=== PATIENT | female | born 1995 | race Caucasian/White ===

== ENCOUNTER 2019-08-11 12:06 | Outpatient (CLI) | payer OTHER, SELFPAY ==
[2019-08-11 13:53] LABS: Hepatitis B Surface Antigen Negative (Negative)
[2019-08-11 14:11] LABS: Hepatitis C Virus Antibody Negative (Negative)
[2019-08-12 07:32] LABS: Rapid Plasma Reagin Non-Reactive (NonReactive)
[2019-08-14 14:11] LABS: HSV 1 IgM Screen Positive (Negative); HSV 2 IgM Screen Negative (Negative)
[2019-08-14 14:42] LABS: HSV 1 IgM Titer 1:20 (<1:20)
== END 2019-08-11 12:07 | disposition home or self-care (01) ==
PROVIDERS: PCP Internal Medicine; Visit Provider Obstetrics & Gynecology
DX: N90.89 Other specified noninflammatory disorders of vulva and perineum (principal); Z11.59 Encounter for screening for other viral diseases
CPT/HCPCS: 36415; 86592; 86695; 86696; 86803; 87340

== ENCOUNTER 2023-06-20 13:04 | Outpatient (CLI) | payer OTHER, SELFPAY ==
--- NOTE | ~2023-06-20 | US_ITS ---
EXAMINATION: US OB <= 14 weeks fetus INDICATION: O26.851 - Spotting complicating , first trimester TECHNIQUE: Sonography of the pelvis was performed by transabdominal techniques. COMPARISON: None. RESULT: Uterus: 9.3 x 4.5 x 6.4 cm. Anteverted. Homogenous myometrium. Intrauterine gestational sac: Single present. A small yolk sac is present, measuring 0.4 cm. Embryo: Single present. Danielson rump length: 1.9 cm, corresponding gestational age 8 weeks, 3 days. G estational heart rate: present 173 bpm. Subgestational hematoma: Absent . Right ovary: Not visualized. Left ovary: 3.2 x 2.4 x 2.6 cm. Vascular flow is present. No adnexal mass. Pelvis free fluid: None. IMPRESSION: Single, live intrauterine gestation. Estimated Gestational Age: 8 weeks, 3 days by crown rump length. LUIS FERNANDO by ultrasound 01/27/2024. Right ovary not visualized in this transabdominal pelvic ultrasound. Reviewed, dictated and finalized at location K. IMPRESSION: Single, live intrauterine gestation. Estimated Gestational Age: 8 weeks, 3 days by crown rump length. LUIS FERNANDO by ultras ound 01/27/2024. Right ovary not visualized in this transabdominal pelvic ultrasound.
== END 2023-06-20 13:05 | disposition home or self-care (01) ==
LOC: ANHIMG 13:08
PROVIDERS: PCP Internal Medicine; Visit Provider Obstetrics & Gynecology
DX: O26.851 Spotting complicating pregnancy, first trimester (principal); Z3A.08 8 weeks gestation of pregnancy
CPT/HCPCS: 36415; 76801; 86850; 86900; 86901

== ENCOUNTER 2023-06-25 11:40 | Outpatient (RCR) | payer OTHER, SELFPAY ==
[2023-06-25] MEDS: RHO(D) IMMUNE GLOBULIN 300 MCG/2 ML SYRINGE IM (16:12)
== END 2023-09-23 23:59 | disposition home or self-care (01) ==
LOC: ANHOBOP 11:40
PROVIDERS: PCP Internal Medicine; Visit Provider Obstetrics & Gynecology
DX: Z29.13 Encounter for prophylactic Rho(D) immune globulin (principal); O36.0190 Maternal care for anti-D [Rh] antibodies, unspecified trimester, not applicable or unspecified; Z3A.00 Weeks of gestation of pregnancy not specified
CPT/HCPCS: 36415; 85461; 86850; 86900; 86901; 90384; 96372; J2790

== ENCOUNTER 2023-08-21 12:09 | Outpatient (CLI) | payer OTHER, SELFPAY ==
[2023-08-21 12:45] LABS: Appearance Urine Clear (Clear); Bilirubin Urine Negative (Negative); Blood Urine Negative (Negative); Color Urine Yellow (Yellow); Glucose Urine UA Negative (Negative); Ketones Urine Negative (Negative); Leukocyte Esterase Ur Negative LEU/UL (Negative); Nitrate Urine Negative (Negative); Protein Urine Negative (Negative); Urobilinogen Urine 0.2 mg/dL (<2.0); pH Urine 6.5 (5.0-9.0)
[2023-08-21 12:49] LABS: Basophils Percent Auto 0.3 % (0.2-1.2); Eosinophils Absolute Auto 0.2 K/mm3 (0-0.3); Eosinophils Percent Auto 2.2 % (0-4.4); Hematocrit 38.2 % (37.0-47.0); Hemoglobin 12.6 g/dL (12.0-15.0); Immature Granulocyte Absolute 0.03 K/mm3 (0.00-0.031); Immature Granulocyte Percent A 0.3 % (0-0.5); Lymphocytes Absolute Auto 1.29 K/mm3 (0.9-3.2); Lymphocytes Percent Auto 12.8 % (18.3-44.2); Mean Corpuscular Hemoglobin 32.8 pg (26-34); Mean Corpuscular Volume 99.5 fl (80-100); Mean Platelet Volume 11.1 fl (7.4-10.4); Monocytes Absolute Auto 0.6 K/mm3 (0.1-0.6); Monocytes Percent Auto 5.6 % (2.6-8.5); Neutrophils Absolute Auto 7.9 K/mm3 (1.3-6.7); Neutrophils Percent Auto 78.8 % (45.5-73.1); Platelet Count Result 226 k/mm3 (150-375); Red Blood Count 3.84 M/mm3 (4.2-5.4); Red Cell Distribution Width 12.8 % (11.5-14.5); White Blood Count 10.1 K/mm3 (4.5-10.0)
[2023-08-21 13:34] LABS: Specific Grav Ur 1.002 (1.001-1.035)
[2023-08-21 13:35] LABS: HIV 1/2 Ab P24 Ag Result Negative (Negative)
[2023-08-21 13:35] LABS: Add Urine Microscopic? NO
[2023-08-21 14:21] LABS: Hepatitis B Surface Antigen Negative (Negative); Rubella IgG Antibody 37.6 IU/ML
[2023-08-21 14:36] LABS: Hepatitis C Virus Antibody Negative (Negative)
[2023-08-22 11:38] LABS: Rapid Plasma Reagin Non-Reactive (NonReactive)
== END 2023-08-21 12:10 | disposition home or self-care (01) ==
LOC: ANHLAB 12:10
PROVIDERS: PCP Internal Medicine; Visit Provider Nurse Practitioner Family
DX: Z34.90 Encounter for supervision of normal pregnancy, unspecified, unspecified trimester (principal); Z3A.00 Weeks of gestation of pregnancy not specified
CPT/HCPCS: 36415; 81003; 85025; 86592; 86703; 86762; 86787; 86803; 86850; 86880; 86900; 86901; 86902; 87086; 87340; G0432

== ENCOUNTER 2023-11-02 08:33 | Outpatient (CLI) | payer OTHER, SELFPAY ==
[2023-11-02 09:53] LABS: Hematocrit 34.1 % (37.0-47.0); Hemoglobin 11.6 g/dL (12.0-15.0); Mean Corpuscular Hemoglobin 33.7 pg (26-34); Mean Corpuscular Volume 99.1 fl (80-100); Mean Platelet Volume 10.7 fl (7.4-10.4); Platelet Count Result 181 k/mm3 (150-375); Red Blood Count 3.44 M/mm3 (4.2-5.4); Red Cell Distribution Width 12.4 % (11.5-14.5)
[2023-11-02 10:04] LABS: Glucose 1 Hour PP 50gm Dose 127 mg/dL
== END 2023-11-02 08:34 | disposition home or self-care (01) ==
LOC: ANHLAB 08:35
PROVIDERS: PCP Internal Medicine; Visit Provider Obstetrics & Gynecology
DX: Z34.92 Encounter for supervision of normal pregnancy, unspecified, second trimester (principal)
CPT/HCPCS: 36415; 82947; 85027; 86900; 86901

== ENCOUNTER 2023-11-19 10:39 | Outpatient (RCR) | payer OTHER, SELFPAY ==
[2023-11-20] MEDS: RHO(D) IMMUNE GLOBULIN 300 MCG/2 ML SYRINGE IM (16:29)
== END 2024-02-17 23:59 | disposition home or self-care (01) ==
LOC: ANHLAB 10:39
PROVIDERS: PCP Internal Medicine; Visit Provider Obstetrics & Gynecology
DX: Z29.13 Encounter for prophylactic Rho(D) immune globulin (principal); O36.0190 Maternal care for anti-D [Rh] antibodies, unspecified trimester, not applicable or unspecified; Z3A.00 Weeks of gestation of pregnancy not specified
CPT/HCPCS: 36415; 85461; 86850; 86900; 86901; 90384; 96372; J2790

== ENCOUNTER 2023-12-04 15:20 | Outpatient (CLI) | payer OTHER, SELFPAY ==
[2023-12-04 15:37] LABS: Basophils Percent Auto 0.3 % (0.2-1.2); Eosinophils Absolute Auto 0.2 K/mm3 (0-0.3); Eosinophils Percent Auto 2.2 % (0-4.4); Hematocrit 33.1 % (37.0-47.0); Hemoglobin 11.4 g/dL (12.0-15.0); Immature Granulocyte Absolute 0.04 K/mm3 (0.00-0.031); Immature Granulocyte Percent A 0.4 % (0-0.5); Lymphocytes Absolute Auto 1.23 K/mm3 (0.9-3.2); Lymphocytes Percent Auto 13.8 % (18.3-44.2); Mean Corpuscular HGB Conc 34.4 g/dl (32-36); Mean Corpuscular Hemoglobin 33.4 pg (26-34); Mean Corpuscular Volume 97.1 fl (80-100); Mean Platelet Volume 11.1 fl (7.4-10.4); Monocytes Absolute Auto 0.7 K/mm3 (0.1-0.6); Monocytes Percent Auto 8.1 % (2.6-8.5); Neutrophils Absolute Auto 6.7 K/mm3 (1.3-6.7); Neutrophils Percent Auto 75.2 % (45.5-73.1); Platelet Count Result 201 k/mm3 (150-375); Red Blood Count 3.41 M/mm3 (4.2-5.4); White Blood Count 8.9 K/mm3 (4.5-10.0)
[2023-12-04 16:27] LABS: HIV 1/2 Ab P24 Ag Result Negative (Negative)
[2023-12-05 15:36] LABS: Rapid Plasma Reagin Non-Reactive (NonReactive)
== END 2023-12-04 15:21 | disposition home or self-care (01) ==
LOC: ANHLAB 15:22
PROVIDERS: PCP Internal Medicine; Visit Provider Obstetrics & Gynecology
DX: Z34.90 Encounter for supervision of normal pregnancy, unspecified, unspecified trimester (principal); Z3A.00 Weeks of gestation of pregnancy not specified
CPT/HCPCS: 36415; 85025; 86592; 86703; G0432

== ENCOUNTER 2024-01-23 09:33 | Inpatient (IN) | payer OTHER, SELFPAY ==
[2024-01-23] VITALS (110 sets, daily range): BP systolic 94–168; BP diastolic 64–118; PULSE 73–223; RESP 16; TEMP 36.3–37.5; O2SAT 96–100; BMI 38.3
[2024-01-23] MEDS: LACTATED RINGERS 1,000 ML 125 ML IV CONT (10:05)
[2024-01-23 10:06] LABS: Basophils Percent Auto 0.3 % (0.2-1.2); Eosinophils Absolute Auto 0.1 K/mm3 (0-0.3); Eosinophils Percent Auto 1.1 % (0-4.4); Hematocrit 34.1 % (37.0-47.0); Hemoglobin 11.8 g/dL (12.0-15.0); Immature Granulocyte Absolute 0.06 K/mm3 (0.00-0.031); Immature Granulocyte Percent A 0.6 % (0-0.5); Lymphocytes Absolute Auto 1.92 K/mm3 (0.9-3.2); Lymphocytes Percent Auto 18.3 % (18.3-44.2); Mean Corpuscular HGB Conc 34.6 g/dl (32-36); Mean Corpuscular Hemoglobin 31.5 pg (26-34); Mean Corpuscular Volume 90.9 fl (80-100); Mean Platelet Volume 12.1 fl (7.4-10.4); Monocytes Absolute Auto 0.8 K/mm3 (0.1-0.6); Monocytes Percent Auto 7.6 % (2.6-8.5); Neutrophils Absolute Auto 7.6 K/mm3 (1.3-6.7); Neutrophils Percent Auto 72.1 % (45.5-73.1); Platelet Count Result 212 k/mm3 (150-375); Red Blood Count 3.75 M/mm3 (4.2-5.4); Red Cell Distribution Width 12.6 % (11.5-14.5); White Blood Count 10.5 K/mm3 (4.5-10.0)
[2024-01-23] MEDS: fentaNYL CITRATE INJ (*CRX) 100 MCG/2 ML VIAL 50 MCG IV PUSH (10:06)
--- NOTE | 2024-01-23 10:09 | LDADM ---
This patient, Leila Marcelo, was admitted to Labor/Delivery/Recovery 104 on 01/23/24 at 09:33. Plans for labor, pain management and were discussed with patient. Patient/family oriented to hospital policies and general routines including ID bracelet, bed and alarms, visiting hours, pain management, procedures, bathroom and other care routines, personal items, smoking policy, room service/diet and guest tray routines, security routines, and visiting hours. Patient/Family are encouraged to report perceived risks to care and to ask questions if they do not understand what they are told or what they should do. See OBIX for further documentation.
[2024-01-23 10:16] LABS: OBXCEM ROM Plus Positive (Negative)
[2024-01-23] MEDS: fentaNYL CITRATE INJ (*CRX) 100 MCG/2 ML VIAL IV PUSH (10:53)
[2024-01-23 10:56] LABS: HIV 1/2 Ab P24 Ag Result Negative (Negative)
--- NOTE | 2024-01-23 11:15 | WPDANESEPP ---
Anes - Eval Pre Procedure Procedure: Labor epidural Date/Time: 01/23/24 11:15 Surgeon: Shane Preop Diagnosis: Pain during labor Pre Op Diagnosis: Labor Patient Data Age: 28 Gender: F Height: 1.65 m Weight: 104.5 kg Last Vital Signs Temp 36.3 C L 01/23/24 09:56 Pulse 74 01/23/24 11:01 BP 130/80 01/23/24 11:01 O2 Del Method Room Air 01/23/24 10:08 Allergies Allergy/AdvReac Type Severity Reaction Status Date / Time amoxicillin Allergy Unknown Unknown Verified 01/21/24 14:30 azithromycin Allergy Unknown Unknown Verified 01/21/24 14:30 Home Medications Medication Instructions Recorded Confirmed Type docosahexaenoic acid 200 mg 200 mg PO DAILY 03/12/23 01/06/24 History capsule ( DHA) Laboratory Tests 01/23/24 01/23/24 10:00 10:08 WBC 10.5 H K/mm3 (4.5-10.0) RBC 3.75 L M/mm3 (4.2-5.4) Hgb 11.8 L g/dL (12.0-15.0) Hct 34.1 L % (37.0-47.0) MCV 90.9 fl (80-100) MCH 31.5 pg (26-34) MCHC 34.6 g/dl (32-36) RDW 12.6 % (11.5-14.5) Plt Count 212 k/mm3 (150-375) MPV 12.1 H fl (7.4-10.4) Immature Gran % (Auto) 0.6 H % (0-0.5) Neut % (Auto) 72.1 % (45.5-73.1) Lymph % (Auto) 18.3 % (18.3-44.2) [place] % (Auto) 7.6 % (2.6-8.5) Eos % (Auto) 1.1 % (0-4.4) Baso % (Auto) 0.3 % (0.2-1.2) Lymph # (Auto) 1.92 K/mm3 (0.9-3.2) [place] # (Auto) 0.8 H K/mm3 (0.1-0.6) Eos # (Auto) 0.1 K/mm3 (0-0.3) Baso # (Auto) 0.0 K/mm3 (0.0-0.1) Abs Immat Gran (auto) 0.06 H K/mm3 (0.00-0.031) Absolute Neuts (auto) 7.6 H K/mm3 (1.3-6.7) Absolute Nucleated RBC 0.000 K/mm3 (0.0-0.012) Nucleated RBC % 0.0 % (0.0-0.2) Membranes Rupture Rom plus positive (Negative) RPR Pending HIV 1&2 Ab/P24 Ag 4thGn Negative (Negative) Blood Type A Negative Antibody Screen Pending Patient hx anesthesia problems: none Family hx anesthesia problems: none Results Review: All pre-operative results and documents have been reviewed as part of the pre-operative evaluation. [facility] Past Medical History Medical History Anxiety Encounter to determine viability of IUD surveillance Vulvar irritation Surgical History Surgical History H/O hand surgery Family History Family History Other Unknown family medical history Social History Social History Smoking status: Never smoker Second hand tobacco smoke exposure: No Alcohol intake: never Substance use: never Substance use type: marijuana Do You Feel Safe in your Home?: Yes Lack of Transportation: No Lack of Food: Never True Current Housing: I Have Housing Concerned About Future Housing: No Difficulty Paying Gas/Electric Bills: No Difficulty Paying for Meds: No Currently Unemployed: No Education: Bachelor's Degree Difficulty w/ Childcare or Family Care: No Spiritual care concerns: No Exam Day of Procedure 01/23/24 11:15 Patient weight: obese Heart: regular rate and rhythm Lungs: clear to auscultation Airway: Mallampati scale class II Neurological: alert and oriented
[2024-01-23 11:32] LABS: Rapid Plasma Reagin Non-Reactive (NonReactive)
--- NOTE | 2024-01-23 15:53 | PM.IMHP ---
H&P: HPI History of Present Illness Date/Time: 01/23/24 15:53 Chief Complaint: Labor Narrative: She presented with c/o leaking. PNC uncomplicated. GBS neg. Review of Systems Review of Systems: All systems reviewed & are unremarkable except as noted in HPI and below Constitutional: Constitutional: Reports no additional constitutional complaints and Denies headache(s) Eyes: Eyes: Denies spots in vision ENT: Reports system reviewed and no additional complaints, except as documented and Denies headache(s) Cardiovascular: Cardiovascular: Denies chest pain and Denies dyspnea Respiratory: Respiratory: Denies dyspnea Gastrointestinal: Gastrointestinal: Reports no additional gastrointestinal complaints Genitourinary: Genitourinary: Reports amenorrhea Musculoskeletal: Musculoskeletal: Reports no additional musculoskeletal complaints Integumentary/Breasts: Skin/Breast: Denies breast mass and Denies rash Neurologic: Denies headache(s) Psychiatric: Psychiatric: Reports no additional psychiatric complaints [facility] Past Medical History Medical History Anxiety Encounter to determine viability of IUD surveillance Vulvar irritation Surgical History Surgical History H/O hand surgery Family History Family History Other Unknown family medical history Social History Social History Smoking status: Never smoker Second hand tobacco smoke exposure: No Alcohol intake: never Substance use: never Substance use type: marijuana Do You Feel Safe in your Home?: Yes Lack of Transportation: No Lack of Food: Never True Current Housing: I Have Housing Concerned About Future Housing: No Difficulty Paying Gas/Electric Bills: No Difficulty Paying for Meds: No Currently Unemployed: No Education: Bachelor's Degree Difficulty w/ Childcare or Family Care: No Spiritual care concerns: No Meds Home Medications and Allergies Home Medications Medication Instructions Recorded Confirmed Type docosahexaenoic acid 200 mg 200 mg PO DAILY 03/12/23 01/06/24 History capsule ( DHA) Allergies Allergy/AdvReac Type Severity Reaction Status Date / Time amoxicillin Allergy Unknown Unknown Verified 01/21/24 14:30 azithromycin Allergy Unknown Unknown Verified 01/21/24 14:30 Vital Signs Vital Signs - 24 hr 01/23/24 10:08 01/23/24 10:00 01/23/24 10:01 Temperature Pulse Rate 84 84 Blood Pressure 141/80 H 136/83 Pulse Oximetry Oxygen Delivery Room Air 01/23/24 10:30 01/23/24 09:56 01/23/24 11:01 Temperature 97.3 F L Pulse Rate 87 74 Blood Pressure 149/84 H 130/80 Pulse Oximetry Oxygen Delivery 01/23/24 11:21 01/23/24 11:23 01/23/24 11:25 Temperature Pulse Rate 76 93 75 Blood Pressure 134/73 134/82 138/87 Pulse Oximetry 96 Oxygen Delivery 01/23/24 11:26 01/23/24 11:28 01/23/24 11:30 Temperature Pulse Rate 77 92 Blood Pressure 131/87 115/88 Pulse Oximetry 97 Oxygen Delivery 01/23/24 11:31 01/23/24 11:33 01/23/24 11:35 Temperature Pulse Rate 87 74 Blood Pressure 100/69 132/81 Pulse Oximetry 97 Oxygen Delivery 01/23/24 11:36 01/23/24 11:38 01/23/24 11:40 Temperature Pulse Rate 76 76 Blood Pressure 140/88 129/84 Pulse Oximetry 98 Oxygen Delivery 01/23/24 11:41 01/23/24 11:43 01/23/24 11:45 Temperature Pulse Rate 77 79 Blood Pressure 131/79 140/89 Pulse Oximetry 98 Oxygen Delivery 01/23/24 11:46 01/23/24 11:48 01/23/24 11:50 Temperature Pulse Rate 73 83 Blood Pressure 132/81 127/77 Pulse Oximetry 98 Oxygen Delivery 01/23/24 11:51 01/23/24 11:53 01/23/24 11:55 Temperature Pulse Rate 77 76 Blood Pressure 132/86 139/88 Pulse Oximetry 98 Oxygen Delivery 01/23/24 11:56 01/23/24 11:57 01/23/24 11:58 Temperature Pulse Rate 99 Blood Pressure 150/94 H Pulse Oximetry 100 100 Oxygen Delivery 01/23/24 12:01 01/23/24 12:02 01/23/24 12:03 Temperature Pulse Rate 106 H 154 H Blood Pressure 168/75 H 103/77 Pulse Oximetry 100 Oxygen Delivery 01/23/24 12:05 01/23/24 12:07 01/23/24 12:09 Temperature Pulse Rate 94 Blood Pressure 100/80 143/84 H Pulse Oximetry 100 Oxygen Delivery 01/23/24 12:11 01/23/24 12:12 01/23/24 12:13 Temperature Pulse Rate 93 99 Blood Pressure 123/80 135/86 Pulse Oximetry 100 Oxygen Delivery 01/23/24 12:16 01/23/24 12:17 01/23/24 12:18 Temperature Pulse Rate 95 103 H Blood Pressure 118/80 131/83 Pulse Oximetry 100 Oxygen Delivery 01/23/24 12:20 01/23/24 12:22 01/23/24 12:23 Temperature Pulse Rate 99 94 Blood Pressure 124/80 130/83 Pulse Oximetry 100 Oxygen Delivery 01/23/24 12:25 01/23/24 12:27 01/23/24 12:28 Temperature Pulse Rate 102 H 98 Blood Pressure 124/85 120/86 Pulse Oximetry 100 Oxygen Delivery 01/23/24 12:30 01/23/24 12:32 01/23/24 12:33 Temperature 97.6 F Pulse Rate 100 88 Blood Pressure 130/73 134/118 H Pulse Oximetry 100 Oxygen Delivery 01/23/24 12:36 01/23/24 12:37 01/23/24 12:38 Temperature Pulse Rate 103 H 99 Blood Pressure 123/75 114/64 Pulse Oximetry 99 Oxygen Delivery 01/23/24 12:41 01/23/24 12:42 01/23/24 12:43 Temperature Pulse Rate 107 H Blood Pressure 94/69 L 111/75 Pulse Oximetry 100 Oxygen Delivery 01/23/24 12:45 01/23/24 12:47 01/23/24 12:48 Temperature Pulse Rate 223 H 108 H Blood Pressure 115/102 H 121/69 Pulse Oximetry 100 Oxygen Delivery 01/23/24 12:50 01/23/24 12:52 01/23/24 12:57 Temperature Pulse Rate 103 H Blood Pressure 115/84 Pulse Oximetry 100 100 Oxygen Delivery 01/23/24 13:00 01/23/24 13:02 01/23/24 13:07 Temperature Pulse Rate 101 H Blood Pressure 131/81 Pulse Oximetry 100 99 Oxygen Delivery 01/23/24 13:12 01/23/24 13:15 01/23/24 13:17 Temperature Pulse Rate 101 H Blood Pressure 126/76 Pulse Oximetry 100 100 Oxygen Delivery 01/23/24 13:22 01/23/24 13:27 01/23/24 13:31 Temperature Pulse Rate 103 H Blood Pressure 124/99 H Pulse Oximetry 100 98 Oxygen Delivery 01/23/24 13:32 01/23/24 13:37 01/23/24 13:42 Temperature Pulse Rate Blood Pressure Pulse Oximetry 98 98 98 Oxygen Delivery 01/23/24 13:45 01/23/24 13:47 01/23/24 13:52 Temperature Pulse Rate 99 Blood Pressure 139/89 Pulse Oximetry 100 99 Oxygen Delivery 01/23/24 13:57 01/23/24 14:00 01/23/24 14:02 Temperature Pulse Rate 89 Blood Pressure 135/92 H Pulse Oximetry 99 99 Oxygen Delivery 01/23/24 14:07 01/23/24 14:12 01/23/24 14:15 Temperature Pulse Rate 89 Blood Pressure 113/96 H Pulse Oximetry 99 99 Oxygen Delivery 01/23/24 14:17 01/23/24 14:22 01/23/24 14:27 Temperature Pulse Rate Blood Pressure Pulse Oximetry 100 100 99 Oxygen Delivery 01/23/24 14:30 01/23/24 14:32 01/23/24 14:36 Temperature Pulse Rate 104 H Blood Pressure 140/88 Pulse Oximetry 98 96 Oxygen Delivery 01/23/24 14:41 01/23/24 14:46 01/23/24 14:51 Temperature Pulse Rate Blood Pressure Pulse Oximetry 99 99 97 Oxygen Delivery 01/23/24 14:56 01/23/24 15:01 01/23/24 15:02 Temperature Pulse Rate Blood Pressure Pulse Oximetry 97 99 99 Oxygen Delivery 01/23/24 15:04 01/23/24 15:05 01/23/24 14:45 Temperature 99.5 F Pulse Rate Blood Pressure Pulse Oximetry 97 98 Oxygen Delivery 01/23/24 15:15 01/23/24 15:31 01/23/24 15:45 Temperature Pulse Rate 120 H 135 H 102 H Blood Pressure 125/69 131/76 130/74 Pulse Oximetry Oxygen Delivery Exam Const: General: no acute distress Eyes: General: appearance normal, both eyes and all related structures Resp: Effort & Inspection: normal respiratory effort Cardio: Rate: regular rate GI: Other: Gravid no fundal tenderness no right upper quadrant pain Skin: General skin exam: no rashes or lesions noted Neuro: Cognition (Neuro): normal cognition Extrem: General: normal to inspection Psych: Mental Status: mental status grossly normal H&P: Results Labs Labs: Short CBC 01/23/24 Range/Units 10:00 WBC 10.5 H (4.5-10.0) K/mm3 Hgb 11.8 L (12.0-15.0) g/dL Hct 34.1 L (37.0-47.0) % Plt Count 212 (150-375) k/mm3 Assessment and Plan Assessment and plan (1) Labor without complication: Code(s): O80 - Encounter for full-term uncomplicated delivery Status: Acute Assessment and Plan: 1. Admit 2. Expectant management.
--- NOTE | 2024-01-23 15:58 | PM.OBPRVD ---
OB - Vaginal Delivery Note Procedure Delivery date: 01/24/24 Induction method: None Delivery monitor: External FHT Route of delivery: Laceration Description: Perineal - 2nd Degree Delivery repair: vicryl (2.0 vicryl) Specimen: No Quantitative Blood Loss (ml): 200 Anesthesia type: Epidural Disposition: Floor Complications: No immediate complications [place] Baby Date of : 01/23/24 Time of : 15:04 Gestational Age by Date: 39 gender: Female presentation: vertex position: Left Occiput Anterior Placenta delivery description: Spontaneous Cord Vessel Description: 3 Vessels Narrative: Mild shoulder dystocia relieved with suprapubic pressure.
[2024-01-23] MEDS: IBUPROFEN 600 MG TABLET PO (19:40)
[2024-01-23] MEDS: ACETAMINOPHEN 325 MG TABLET 650 MG PO (19:40)
[2024-01-24 00:15] VITALS: BP 134/88; PULSE 92; RESP 18; TEMP 37.2; O2SAT 100
[2024-01-24] MEDS: ACETAMINOPHEN 325 MG TABLET 650 MG PO ×2 (01:45→10:30)
[2024-01-24] MEDS: IBUPROFEN 600 MG TABLET PO ×3 (02:00→17:37)
[2024-01-24 05:40] VITALS: BP 130/77; PULSE 79; RESP 16; TEMP 36.7; O2SAT 100
[2024-01-24 05:42] LABS: Hematocrit 28.7 % (37.0-47.0); Hemoglobin 9.2 g/dL (12.0-15.0)
[2024-01-24 07:30] VITALS: BP 113/83; PULSE 88; RESP 16; TEMP 37.3; O2SAT 97
--- NOTE | 2024-01-24 08:05 | PC.NURSE ---
To room to assist with . Baby hasn't eaten in several hours and the last feeding was a bottle. Attempted to latch to the [left & right] breasts in [cross cradle & football] position. [was not] able to maintain an appropriate latch. Mother [declines ] nipple pain/discomfort [throughout feeding]. Infant is eager but sucks once with latch and then releases the breast. Baby was at the breast off and on for about 10 minutes. Suggested mom can place infant skin to skin to calm and reorganize her or they can move on to some supplementation and feed again in 3 hours. Parents would like to supplement at this time with 10-15ml of Similac. Mother taught to listen for swallowing during feedings. Reviewed using the blue feeding sheet to record time and duration of feeding. Mother voiced understanding of the education shared, to call for assistance if the does not latch or if there is discomfort with . name/number on communication board. Reported to the Primary RN.?
--- NOTE | 2024-01-24 09:41 | WPDANLDPN2 ---
Anes-Prog Note L&D Date/Time: 01/24/24 09:41 Comfortable throughout: labor and delivery Neuraxial method: epidural Epidural/Spinal procedure site: clean & non-tender Neuro status: Neuro function grossly intact. Cardiovascular status: normal Respiratory status: normal Airway patency: baseline Mental status: baseline Post-Op hydration status: normal Vital Signs: Last Vital Signs Temp 37.3 C 01/24/24 07:30 Pulse 88 01/24/24 07:30 Resp 16 01/24/24 07:30 BP 113/83 01/24/24 07:30 Pulse Ox 97 01/24/24 07:30 O2 Del Method Room Air 01/23/24 10:08 Pain score (VAS): 2/10 I/O: Intake & Output 01/23/24 01/24/24 01/24/24 23:59 07:59 15:59 Intake Total 100 500 Balance 100 500 Post-procedural complaints: none Patient feedback: Patient satisfied with anesthetic care.
[2024-01-24] MEDS: POLYSACCHARIDE IRON COMPLEX 150 MG CAPSULE PO ×2 (10:30→17:37)
[2024-01-24] MEDS: MULTIVIT/MIN/PREN/FOL AC/IRON TABLET 1 TAB PO (10:30)
[2024-01-24] MEDS: DOCUSATE SODIUM 100 MG CAPSULE PO ×2 (10:30→17:37)
[2024-01-24] MEDS: RHO(D) IMMUNE GLOBULIN 300 MCG/2 ML SYRINGE IM (11:01)
--- NOTE | 2024-01-24 11:50 | PC.NURSE ---
1150- Parents called out for assistance. Mom had baby skin to skin in football position and stated that baby was very sleepy. We attempt to wake her and latch. She opened her moutha few times for us but never latched. Encouraged continued skin to skin and try again in half and hour or earlier if any feeding cues are seen. 1240- To room to see if parents had any luck with . Mom tried twice more to latch without any luck. We tried to awaken baby again but she is still very sleepy. Discussed with mom what she would like to do next. We can try again in a half hour or move on to pumping and bottle feeding. Mom wants to supplement with formula and someone is bringing her pump in now. We will start her pumping and move on to the [id number] feeding plan. Parents agree to this plan. Reported to primary RN. 1330- Breast pump from home set up ([employer] Instructions given on cleaning, care, usage, that there should be no pain, pumping schedule for milk production, collection, and storage of human milk. Patient was assessed for correct placement, flange size, to pump for comfort and nipple stretching/stimulation for adequate milk production every 3 hours (8 times in 24 hours) 1-2 times at night. Mother voiced understanding of the education shared along with mom/baby guide for additional resource information. Reported to the Primary RN.
[2024-01-24 11:52] VITALS: BP 116/74; PULSE 68; RESP 16; TEMP 36.9; O2SAT 98
[2024-01-24 21:44] VITALS: BP 123/81; PULSE 79; RESP 18; TEMP 36.7; O2SAT 98
[2024-01-25] MEDS: DOCUSATE SODIUM 100 MG CAPSULE PO (07:56)
[2024-01-25] MEDS: POLYSACCHARIDE IRON COMPLEX 150 MG CAPSULE PO (07:56)
[2024-01-25] MEDS: MULTIVIT/MIN/PREN/FOL AC/IRON TABLET 1 TAB PO (07:56)
[2024-01-25] MEDS: IBUPROFEN 600 MG TABLET PO (07:57)
[2024-01-25 08:00] VITALS: BP 120/80; PULSE 76; RESP 16; TEMP 36.7; O2SAT 97
--- NOTE | 2024-01-25 09:46 | P.PNOB_ITS ---
OB - PN: Subj Subjective Date/time seen: 01/24/24 0830 Patient comments: pain well controlled, tolerating diet and other (Decreasing lochia.) baby status: doing well [place] feeding status: exclusively breast feeding OB - PN: Obj Data Labs 01/24/24 05:32 Labs: Laboratory Results - last 24 hr 01/24/24 05:32 Blood Type A Negative Antibody Screen TNP Screen Negative Baby's Blood Type A pos Baby's KERI Positive Doses of RhIg Required 1 OB - PN A/P Plan day: 1 Plan: routine care Comments: Patient doing well. Time Spent With Patient Time: Total time spent is greater than 50% in coordination of care (as documented) at patient's floor/unit and/or counseling patient: Exam Psych: Affect: normal affect Other: Abd: fundus firm below umbilicus, nontender Perineum: healing Ext: nontender
--- NOTE | 2024-01-25 09:47 | PM.OBPNVD ---
OB - PN: Subj Subjective Date/time seen: 01/25/24 09:47 Patient comments: pain well controlled, tolerating diet and other (Decreasing lochia.) feeding status: exclusively breast feeding OB - PN: Obj Data Labs 01/24/24 05:32 Labs: Laboratory Results - last 24 hr 01/24/24 05:32 Blood Type A Negative Antibody Screen TNP Screen Negative Baby's Blood Type A pos Baby's KERI Positive Doses of RhIg Required 1 OB - PN A/P Plan day: 2 Plan: discharge home and other Comments: Patient doing well. Follow up 4-6 weeks. Discharge instructions provided. Time Spent With Patient Time: Total time spent is greater than 50% in coordination of care (as documented) at patient's floor/unit and/or counseling patient: Time with patient: less than 15 minutes Exam Psych: Affect: normal affect Other: Abd: fundus firm below umbilicus, nontender Ext: nontender
--- NOTE | 2024-01-25 09:48 | PM.OBDSVD ---
DS: Admitting Diagnosis Discharge Date 01/25/24 Admitting Diagnosis Labor DS: Discharge Diagnosis Discharge Diagnosis (1) Delivery normal: Code(s): O80 - Encounter for full-term uncomplicated delivery Status: Acute OB - DS: Summary Hospital Course Hospital Course: She was admitted in labor. She progressed to complete. She had an uncomplicated vaginal delivery. She did well . She had adequate pain control and was ambulating and had decreasing lochia. Baby was doing well. She was discharged to home on day 2. OB Procedures : Ultrasound OB Procedures Intrapartum: Spontaneous Vag Delivery OB Procedures: : None Peripartum Data Delivery Method: Natural Vaginal Laceration Description: Perineal - 2nd Degree complications: none Status at Discharge Functional status at discharge: independent ambulation Time Spent with Patient Time attestation: Total time spent providing and/or coordinating discharge services: Exam Const: General: cooperative Orientation/consciousness: oriented to person, oriented to place and oriented to time HENMT: Face/Nose/Sinus: Normal external nose present Eyes: General: appearance normal, both eyes and all related structures Resp: Effort & Inspection: normal respiratory effort GI: Inspection: normal to inspection Skin: General skin exam: normal color Neuro: General: oriented to person, oriented to place and oriented to time Extrem: General: normal to inspection and no calf tenderness Psych: Appearance: grossly normal Mental Status: mental status grossly normal DS: Data Data Completed and Pending Labs on day of discharge: Labs from last 24 hours 01/24/24 05:32 Blood Type A Negative Antibody Screen TNP Screen Negative Baby's Blood Type A pos Baby's KERI Positive Doses of RhIg Required 1 Discharge Plan Discharge Attending physician on discharge: Krishna Lynn Consulting providers: Oleksandr Aden Discharging Clinician: Krishna Lynn Anticipated Discharge Date/Time: 01/25/24 09:50 Patient Disposition: Home, Self-Care Activity: may shower and pelvic rest Diet: regular Patient Instructions: Antibiotic Form Stand Alone Forms: General Discharge Information Follow-up/Referrals: Krishna Lynn MD [Physician] - 2 Weeks (Call for appointment) Discharge Medications: No Action DHA 200 mg capsule 200 mg PO DAILY Date of admission: 01/23/24 09:33 Primary Care Provider: Jaime Hoyt Admitting Provider: Krishna Lynn Attending physician on admission: Krishna Lynn Condition: Stable
--- NOTE | 2024-01-25 10:06 | PC.NURSE ---
Patient viewed the discharge video Mother & Baby Care, The First Two Weeks . Patient was given the opportunity and encouraged to ask questions. Patient verbalized understanding of information shared and has been given the mother/baby guide for home reference.
--- NOTE | 2024-01-25 13:00 | PC.NURSE ---
Consulted with mother concerning needs and she shared her ability to independently latch infant optimally without pain. Mother is feeding appropriately for growth of and understands stimulating to eat if needed. Infant has had appropriate feedings in the last 24 hours meets the outcomes for weight, output, blood sugar and jaundice at this time. Reinforced understanding of milk production, transition of milk, signs of adequate intake, transition of stool, prevention/relief of engorgement, plugged ducts, mastitis, responsive watching for feeding cues, the different methods of stimulating to breastfeed 1-3 hours after the start of the last feeding, community resources, and when to call a provider using the resource of the feeding sheet along with the mom and baby guide. Mother voiced understanding of the information shared, is confident to continue effectively her infant at home, when to call for assistance, denies any additional assistance or education at this time. Reported to the Primary RN.
[2024-01-27 09:43] VITALS: BP 135/87; PULSE 61; RESP 18; TEMP 37.1; O2SAT 100
== END 2024-01-25 12:43 | disposition home or self-care (01) | DRG 807 ==
LOC: ANHLDR 09:51 → ANHOB2 17:49
PROVIDERS: Admitting Provider Obstetrics & Gynecology; PCP Internal Medicine; Visit Provider Obstetrics & Gynecology
DX: O66.0 Obstructed labor due to shoulder dystocia (principal); Z37.0 Single live birth; O70.1 Second degree perineal laceration during delivery; Z3A.39 39 weeks gestation of pregnancy
CPT/HCPCS: 36415; 84112; 85014; 85018; 85025; 85461; 86592; 86703; 86850; 86880; 86900; 86901; 86902; 90384; A9270; G0432; J2790; J2795; J3010; J7120